=== PATIENT | female | born 1990 | race Hispanic/Latino ===

== ENCOUNTER 2016-10-28 10:38 | Inpatient (IN) | payer MEDICAID ==
[2016-10-28] MEDS ORDERED: POLYCILLIN/NS 2 GM/100 ML 100 ML IV ONE (11:31)
[2016-10-28] MEDS ORDERED: LACTATED RINGERS 1,000 ML IV SCH ×2 (12:00→17:00)
[2016-10-28] MEDS ORDERED: SUBLIMAZE IV ONE (13:55)
[2016-10-28 14:14] LABS: Hematocrit 36.7 % (30.3-42.9); Mean Corpuscular HGB Conc 35 % (30-34); Mean Corpuscular Hemoglobin 31 pg (28-32); Mean Corpuscular Volume 87 fl (79-97); Platelet Count 188 K/mm3 (140-440); Red Blood Count 4.24 M/mm3 (3.65-5.03); Red Cell Distribution Width 12.7 % (13.2-15.2)
[2016-10-28] MEDS ORDERED: PITOCin/NS 20 UNIT/1000ML DRIP 1,000 ML IV ONE ×2 (15:03→16:33)
[2016-10-28] MEDS ORDERED: MINERAL OIL ONE (15:03)
[2016-10-28 15:08] LABS: HIV-1 Antigen p24 Non React (Non React); HIVR-1/2 Ab Non React (Non React)
[2016-10-28] MEDS ORDERED: STADOL ONE (15:27)
[2016-10-28] MEDS ORDERED: ePHEDrine SULFATE IV PRN (16:37)
[2016-10-28] MEDS ORDERED: BRETHINE SUB-Q PRN (16:37)
[2016-10-28] MEDS ORDERED: MINERAL OIL PO PRN (16:37)
[2016-10-28] MEDS ORDERED: BRETHINE IVP PRN (16:37)
--- NOTE | 2016-10-28 16:37 | History and Physical Report ---
History of Present Illness Date of examination: 10/28/16 Date of admission: 10/28/16 10:38 Chief complaint: Srom clear at 9 a Past History Past Medical History: no pertinent history Past Surgical History: no surgical history Family/Genetic History: none Social history: no significant social history - Obstetrical History : 5 Medications and Allergies Allergies Allergy/AdvReac Type Severity Reaction Status Date / Time No Known Allergies Allergy Unverified 10/28/16 11:30 Active Meds: Active Medications Lactated Ringer's (Lactated Ringers) 1,000 mls @ 125 mls/hr IV DIRECT [place] Review of Systems All systems: negative Breasts: normal Gastrointestinal: constipation, no nausea, no vomiting Rectal Exam: deferred Integumentary: deferred - Vital Signs Vital signs: Vital Signs Pulse BP 92 H 122/82 10/28/16 11:15 10/28/16 11:15 Temp Pulse Resp BP Pulse Ox 98.1 F 87 18 136/56 96 10/28/16 16:16 10/28/16 16:27 10/28/16 16:16 10/28/16 16:21 10/28/16 16:27 - Physical Exam Breasts: Positive: normal Cardiovascular: Regular rate Lungs: Positive: Clear to auscultation Abdomen: Positive: normal appearance, soft, normal bowel sounds Genitourinary (Female): Positive: normal external genitalia, normal perenium Vulva: both: normal Vagina: Positive: normal moisture Uterus: Positive: normal size Anus/Rectum: Positive: normal perianal skin, heme negative Extremities: Positive: normal - Obstetrical FHR: auscultation normal Uterine Contraction Monitor Mode: Palpation Cervical Dilatation: 2 Cervical Effacement Percentage: 60 station: -2 Uterine Contraction Pattern: Regular Results Result Diagrams: 10/28/16 11:35 Abnormal lab results 10/28/16 Range/Units 11:35 WBC 14.0 H (4.5-11.0) K/mm3 MCHC 35 H (30-34) % RDW 12.7 L (13.2-15.2) % All other labs normal. Assessment and Plan HD#1 s/p grossly ruptured clear fluid records unobtainable will gather info from Dr. Miroslava Williamson office start Amp for GBS + expect vag delivery
[2016-10-28] MEDS ORDERED: PITOCin/NS 20 UNIT/1000ML DRIP 1,000 ML IV SCH (17:00)
[2016-10-28] MEDS ORDERED: PITOCin/NS 30 UNIT/500ML 500 ML IV SCH ×2 (17:00)
--- NOTE | 2016-10-28 17:30 | Procedure Note ---
OB Delivery Note - Delivery Date of Delivery: 10/28/16 Surgeon: DAVID SUTTON Estimated blood loss: 300cc - Vaginal Delivery presentation: vertex Delivery position: OA Delivery induction: none Delivery monitor: external FHT, external uterine Route of delivery: Delivery placenta: spontaneous Delivery cord: nuchal cord (two double nuchal cords) Episiotomy: none Delivery laceration: 2nd degree Delivery repair: vicryl Anesthesia: local - A at 1 minute: 8 at 5 minutes: 9 Infant Gender: Female
[2016-10-28] MEDS ORDERED: MILK OF MAGNESIA PO PRN (19:33)
[2016-10-28] MEDS ORDERED: BENADRYL PO PRN (19:33)
[2016-10-28] MEDS ORDERED: PHENERGAN PO PRN (19:33)
[2016-10-28] MEDS ORDERED: LANSINOH TP PRN (19:33)
[2016-10-28] MEDS ORDERED: PHENERGAN PR PRN (19:33)
[2016-10-28] MEDS ORDERED: TUCKS PAD TP PRN (19:33)
[2016-10-28] MEDS ORDERED: DULCOLAX PR PRN (19:33)
[2016-10-28] MEDS ORDERED: TYLENOL PO PRN (19:33)
[2016-10-28] MEDS ORDERED: DERMOPLAST TP PRN (19:33)
[2016-10-28] MEDS ORDERED: PERCOCET 5/325 PO PRN (19:33)
[2016-10-28] MEDS ORDERED: ZOFRAN IV PRN (19:33)
[2016-10-28] MEDS ORDERED: ANUCORT-HC PR PRN (19:33)
[2016-10-28] MEDS ORDERED: SODIUM CHLORIDE FLUSH SYRINGE 10 ML IV NR (20:00)
[2016-10-28] MEDS: MOTRIN PO SCH (21:15)
[2016-10-29] MEDS: MOTRIN PO SCH ×3 (05:17→23:20)
[2016-10-29] MEDS ORDERED: BOOSTRIX IM ONE (06:00)
[2016-10-29 10:32] LABS: Hematocrit 31.1 % (30.3-42.9); Hemoglobin 10.9 gm/dl (10.1-14.3)
[2016-10-29] MEDS ORDERED: COLACE PO SCH (22:00)
[2016-10-30] MEDS: MOTRIN PO SCH ×2 (05:26→09:11)
--- NOTE | 2016-10-30 11:21 | Progress Note ---
Assessment and Plan PPD#1 s/p Doing well ambulating well breast and bottle feeding lochia decreasing A+ no rhogam indicated VSS D/C home today Subjective - Subjective Date of service: 10/30/16 Principal diagnosis: PPD#1 s/p Patient reports: appetite normal, voiding normally, pain well controlled, ambulating normally : doing well, nursing well, bottle feeding Objective - Vital Signs Latest vital signs: Vital Signs Temp Pulse Resp BP 10/30/16 07:56 97.9 F 72 20 106/54 10/29/16 23:10 99.3 F 74 18 118/62 10/29/16 15:52 98.3 F 76 18 108/72 Intake and Output 10/29/16 10/30/16 10/30/16 22:59 06:59 14:59 Intake Total 240 720 Balance 240 720 Intake: Oral 240 Intake, Free Water 720 Other: Total, Intake Amount 240 # Voids Void 1 1 - Exam Breasts: Present: normal Cardiovascular: Present: Regular rate Lungs: Present: Clear to auscultation Abdomen: Present: normal appearance, soft, normal bowel sounds. Absent: distention, tenderness Vulva: both: laceration/episiotomy (healing well ) Uterus: Present: normal, firm, fundal height below umbilicus (3cm below) Extremities: Present: normal Deep Tendon Reflex Grade: Normal +2 Incision: Present: normal, dry, intact
--- NOTE | 2016-10-30 11:23 | Discharge Summary ---
Providers - Providers Date of Admission: 10/28/16 10:38 Date of discharge: 10/30/16 Attending physician: Makayla Cuevas MD Primary care physician: FRANCE SANCHEZ Hospitalization Reason for admission: rupture of membranes Delivery: Episiotomy: none Laceration: none Incision: normal, intact Other procedures: none complications: none Discharge diagnosis: IUP at term delivered baby: female Condition at discharge: Good Disposition: DISCHARGED TO HOME OR SELFCARE Plan - Provider Discharge Summary Activity: routine, no sex for 6 weeks, no strenuous exercise Diet: routine Instructions: routine Additional instructions: [] Smoking cessation referral if applicable(refer to patient education folder for contact #) [] Refer to [facility] Booklet Call your doctor immediately for: * Fever > 100.5 * Heavy vaginal bleeding ( >1 pad per hour) * Severe persistent headache * Shortness of breath * Reddened, hot, painful area to leg or breast * Drainage or odor from incision. * Keep incision clean and dry at all times and follow doctor's instructions regarding bathing/showering - Follow up plan Follow up: FRANCE SANCHEZ MD [Primary Care Provider] - 11/30/16
[2016-10-30 16:50] VITALS: BP 106/66
== END 2016-10-30 14:35 | disposition home or self-care (01) | DRG 775 ==
LOC: LD 10:38 → OB 17:33
PROVIDERS: ADMIT Obstetrics & Gynecology; ATTEND Obstetrics & Gynecology
PROC: 10E0XZZ Delivery of Products of Conception, External Approach (ICD-10-PCS; principal; 2016-10-28)
PROC: 0KQM0ZZ Repair Perineum Muscle, Open Approach (ICD-10-PCS; 2016-10-28)
DX: O42.02 Full-term premature rupture of membranes, onset of labor within 24 hours of rupture (principal); O69.81X0 Labor and delivery complicated by cord around neck, without compression, not applicable or unspecified; O99.824 Streptococcus B carrier state complicating childbirth; O70.1 Second degree perineal laceration during delivery; Z37.0 Single live birth; Z3A.39 39 weeks gestation of pregnancy
CPT/HCPCS: 36415; 85014; 85018; 85027; 86592; 86706; 86762; 86850; 86900; 86901; 87806; 90471; 90715; 99211; A6250; G0463; J0290; J0595; J2590; J3010; J7120